=== PATIENT | female | born 2005 | race Two or more races ===

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

== ENCOUNTER 2024-04-04 07:37 | Emergency (ER) | payer SELFPAY ==
[~2024-04-04] VITALS: Ht 162.6 cm; Wt 73.0 kg
[2024-04-04 07:55] VITALS: BP 142/83; PULSE 93; RESP 16; TEMP 97.8; O2SAT 99
[2024-04-04 08:36] LABS: Basophils # (auto) 0 10 ^3/uL (0-0.2); Basophils % (auto) 0.3 % (0.0-2.0); Eosinophils # (auto) 0.1 10 ^3/uL (0-0.8); Eosinophils % (auto) 1.4 % (0.0-7.0); Hematocrit 34.3 % (36.0-46.0); Hemoglobin 11.9 g/dL (12.2-16.2); Lymphocytes # (auto) 1.9 10 ^3/uL (0.4-5.4); Lymphocytes % (auto) 18.4 % (10.0-50.0); Mean Corpuscular Hemoglobin 29.3 pg (28.0-32.0); Mean Corpuscular Hgb Conc. 34.6 g/dL (32.0-36.0); Mean Corpuscular Volume 84.6 fL (80.0-100.0); Monocytes # (auto) 0.5 10 ^3/uL (0-1.3); Monocytes % (auto) 5.2 % (0.0-12.0); Neutrophils # (auto) 7.8 10 ^3/uL (1.6-8.6); Neutrophils % (auto) 74.7 % (37.0-80.0); Platelet Count (auto) 293 10^3/uL (140-450); Red Blood Cells 4.05 10^6/uL (4.0-5.20); Red Cell Distribution Width 13.4 % (11.8-14.3); White Blood Cell 10.5 10^3/uL (4.4-10.8)
[2024-04-04 08:40] LABS: Urine Bacteria FEW /hpf (None Seen); Urine Blood 2+ /uL (Negative); Urine Budding Yeast FEW /hpf (None Seen); Urine Clarity Turbid (Clear); Urine Color Light-Orange (Yellow); Urine Mucus FEW (None Seen); Urine Protein, UAD 2+ (Negative); Urine Specific Gravity 1.017 (1.001-1.035); Urine Urobilinogen Normal (Negative); Urine WBC 93 /hpf (0 - 5); Urine WBC Clumps PRESENT /hpf (None Seen); Urine pH 6.5 (5.0-9.0)
[2024-04-04 08:50] LABS: Chloride 106 mmol/L (98-107); Potassium 3.6 mmol/L (3.5-5.1); Sodium 136 mmol/L (136-145)
[2024-04-04 08:51] LABS: Anion Gap 8 (5-15); Carbon Dioxide 22 mmol/L (20-30)
[2024-04-04 08:52] LABS: Calcium 9.7 mg/dL (8.7-10.4)
[2024-04-04 08:56] LABS: Glucose 95 mg/dL (74-106)
[2024-04-04 08:59] LABS: BUN/Creatinine Ratio 11.4 (10.0-20.0); Blood Urea Nitrogen < 5 mg/dL (9-23)
[2024-04-04] MEDS: ACETAMINOPHEN 500 MG TAB PO ONE (10:05)
[2024-04-04] MEDS: cefTRIAXone SOD 1,000 MG VL IM ONE (10:05)
[2024-04-04] MEDS ORDERED: NITR-87 PO (10:22)
[2024-04-04] MEDS ORDERED: ACET-1304 PO (10:22)
== END 2024-04-04 10:38 | disposition home or self-care (01) ==
LOC: ER 07:37
DX: O23.42 Unspecified infection of urinary tract in pregnancy, second trimester (principal); N39.0 Urinary tract infection, site not specified; R10.2 Pelvic and perineal pain; Z3A.24 24 weeks gestation of pregnancy; Z79.899 Other long term (current) drug therapy
CPT/HCPCS: 36415; 76775; 76805; 80048; 81001; 81025; 84702; 85025; 96372; 99285; J0696